=== PATIENT | female | born 1970 | race Caucasian/White ===

== ENCOUNTER → 2024-10-28 08:32 | Outpatient (REF) | payer OTHER, SELFPAY | LOC: RAD 08:32 | PROVIDERS: ATTENDING PHYSICIAN Family Medicine | DX: N95.1 Menopausal and female climacteric states (principal); I10 Essential (primary) hypertension; Z13.820 Encounter for screening for osteoporosis | CPT/HCPCS: 77080 ==

== ENCOUNTER → 2025-01-26 12:31 | Outpatient (REF) | payer OTHER, SELFPAY | LOC: WDC 12:31 | PROVIDERS: ATTENDING PHYSICIAN Nurse Practitioner | DX: Z12.31 Encounter for screening mammogram for malignant neoplasm of breast (principal) | CPT/HCPCS: 77063; 77067 ==